=== PATIENT | female | born 1995 ===

== ENCOUNTER 2018-08-18 20:43 | Emergency (ER) | payer SELFPAY ==
[2018-08-18 21:54] VITALS: BMI 26.2
[2018-08-19 00:20] LABS: BASO % 0.3 % (0.0-2.0); EOS % 0.1 % (0.0-4.0); HEMOGLOBIN 13.1 g/dL (11.0-16.0); LYMPH # 1.2 K/uL (1.0-4.3); LYMPH % 16.1 % (20.0-40.0); MEAN CELL VOLUME 93.4 fL (81.0-99.0); MEAN CORPUSCULAR HEMOGLOBIN 32.2 pg (27.0-31.0); MEAN CORPUSCULAR HGB CONC 34.5 g/dL (33.0-37.0); MONO # 0.3 K/uL (0.0-0.8); MONO % 4.4 % (0.0-10.0); NEUT # 5.9 K/uL (1.8-7.0); NEUT % 79.1 % (50.0-75.0); RBC 4.06 Mil/uL (3.80-5.20); RED CELL DISTRIBUTION WIDTH 13.1 % (11.5-14.5); WHITE BLOOD COUNT 7.5 K/uL (4.8-10.8)
[2018-08-19 00:28] LABS: ALB/GLOB RATIO 1.5 (1.0-2.1); ALBUMIN 5.1 g/dL (3.5-5.0); ALT/SGPT 25 U/L (9-52); AST/SGOT 27 U/L (14-36); BLOOD UREA NITROGEN 9 mg/dL (7-17); CALCIUM 9.9 mg/dl (8.6-10.4); GFR NON-AFRICAN AMERICAN > 60
[2018-08-19] MEDS ORDERED: Iodixanol 320 MG/ML 100 ML BOTTLE IV ONE (00:38)
[2018-08-19 02:09] VITALS: BP 110/62; PULSE 81; RESP 16; TEMP 98.1
[2018-08-19 02:13] VITALS: O2SAT 100
--- NOTE | 2018-08-19 02:13 | C.PDOC ---
History Of Present Illness 22 year old female presents with left sided chest pain since 12 noon while at home. Patient reports feeling anxious, states it worsens with inspiration and radiates to the left upper arm, shoulder and back area. Denies SOB or recent prolonged travel. She reports she has implanted control device in her left upper arm. Time Seen by Provider: 08/18/18 20:45 Chief Complaint (Nursing): Chest Pain History Per: Patient History/Exam Limitations: no limitations Onset/Duration Of Symptoms: Hrs Current Symptoms Are (Timing): Still Present Exacerbating Factors: Deep Breathing Alleviating Factors: None Recent travel outside of the [place]: No Past Medical History Reviewed: Historical Data, Nursing Documentation, Vital Signs Vital Signs: Last Vital Signs Temp 98.6 F 08/18/18 21:11 Pulse 80 08/18/18 23:54 Resp 18 08/18/18 23:54 BP 129/74 08/18/18 23:54 Pulse Ox 100 08/18/18 23:54 Primary Care Provider: FAMILY PROVIDER,NO Family History: States: No Known Family Hx - Social History Hx Alcohol Use: No Hx Substance Use: No Review Of Systems Constitutional: Negative for: Fever, Chills Cardiovascular: Positive for: Chest Pain Respiratory: Negative for: Cough, Shortness of Breath Gastrointestinal: Negative for: Nausea, Vomiting Skin: Negative for: Rash Physical Exam - Physical Exam Appears: Non-toxic Skin: Warm, No Rash Head: Atraumatic, Normacephalic Eye(s): bilateral: Normal Inspection Oral Mucosa: Moist Neck: Normal, Supple Chest: Symmetrical, No Tenderness Cardiovascular: Rhythm Regular Respiratory: Normal Breath Sounds, No Rales, No Rhonchi, No Wheezing Gastrointestinal/Abdominal: Soft, No Tenderness Extremity: Normal ROM (x4), No Calf Tenderness, Other (Small scar with possible palpable mass to inner aspect of left upper arm.) Pulses: Left Radial: Normal, Right Radial: Normal Neurological/Psych: Oriented x3, Normal Speech ED Course And Treatment - Laboratory Results Result Diagrams: 08/19/18 00:10 08/19/18 00:10 Lab Results: D-Dimer, Quantitative 291 ng/mlDDU (0-243) H 08/18/18 22:14 Troponin I < 0.0120 ng/mL (0.00-0.120) 08/19/18 00:10 Total Bilirubin 0.7 mg/dL (0.2-1.3) 08/19/18 00:10 AST 27 U/L (14-36) 08/19/18 00:10 ALT 25 U/L (9-52) 08/19/18 00:10 Alkaline Phosphatase 66 U/L (38-126) 08/19/18 00:10 Total Protein 8.5 g/dL (6.3-8.3) H 08/19/18 00:10 Albumin 5.1 g/dL (3.5-5.0) H 08/19/18 00:10 Globulin 3.4 gm/dL (2.2-3.9) 08/19/18 00:10 Albumin/Globulin Ratio 1.5 (1.0-2.1) 08/19/18 00:10 ECG: Interpreted By Me, Viewed By Me ECG Rhythm: Sinus Rhythm ECG Interpretation: Normal Interpretation Of ECG: Right axis deviation, nonspecific ST/T abnormalities Rate From EC O2 Sat by Pulse Oximetry: 100 (Room air) Pulse Ox Interpretation: Normal - CT Scan/US CTA Other Rad Studies (CT/US): Read By Radiologist, Radiology Report Reviewed CT/US Interpretation: CTA OF THE CHEST WITH IV CONTRAST. CLINICAL HISTORY: Chest pain and elevated d-dimer. TECHNIQUE: Axial and reformatted sagittal and coronal images of the chest obtained after bolus IV contrast administration. FINDINGS: Normal enhancement of the main pulmonary artery and right and left pulmonary arteries. Normal enhancement of the bilateral peripheral pulmonary arteries. There is no demonstrated pulmonary embolism. Normal thoracic aorta and visualized great vessels. There is no demonstrated aortic dissection. Normal heart and pericardium. Normal mediastinum. Normal hilar regions. Normal visualized trachea and bronchi. The lungs are well expanded. Normal pulmonary parenchyma. Normal pleura. Normal chest wall structures. Normal osseous structures. Normal visualized upper abdomen. IMPRESSION: No demonstrated pulmonary embolism or arterial dissection. Progress Note: CXR ordered, results were negative. Motrin, prednisone, and benadryl administered. D-dimer ordered and came back positive, CTA and blood work ordered. On reevaluation, patient is resting comfortably in no acute distress, vitals are stable, CT was negative for PE, blood work was negative, will discharge home with Rx and instructions to follow up with PMD. Disposition Counseled Patient/Family Regarding: Diagnosis, Need For Followup, Rx Given - Disposition Referrals: [facility] [Outside] Disposition: HOME/ ROUTINE Disposition Time: 02:15 Condition: STABLE Additional Instructions: Take motrin for pain Take Zyrtec and prednisone Follow up in medical clinic and [facility] Return to ER if worse Prescriptions: Cetirizine HCl [Zyrtec] 10 mg PO DAILY #14 capsule Ibuprofen [Motrin] 600 mg PO Q6H #20 tab predniSONE [Prednisone] 40 mg PO DAILY #8 tab Instructions: Hives (DC), Costochondritis (DC) Forms: [facility] (Albanian) Print Language: HEBREW - Clinical Impression Clinical Impression: Chest wall pain, Urticaria - 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 - Scribe Statement The provider has reviewed the documentation as recorded by the Scribjudson Soto All medical record entries made by the Alibjudson were at my direction and personally dictated by me. I have reviewed the chart and agree that the record accurately reflects my personal performance of the history, physical exam, medical decision making, and the department course for this patient. I have also personally directed, reviewed, and agree with the discharge instructions and disposition.
--- NOTE | 2018-08-19 08:39 | RAD ---
Date of service: 08/18/2018 HISTORY: Chest pain COMPARISON: No prior. TECHNIQUE: Chest PA and lateral FINDINGS: LINES AND TUBES: None. LUNG AND PLEURA: The lungs are well inflated and clear. No pleural effusion or pneumothorax. HEART AND MEDIASTINUM: The heart is not enlarged. No aortic atherosclerotic calcifications present. The hilar and mediastinal contours are within normal limits. SKELETAL STRUCTURES: The bony structures are within normal limits for the patient's age. VISUALIZED UPPER ABDOMEN: Normal. OTHER FINDINGS: None. IMPRESSION: No active pulmonary disease.
--- NOTE | 2018-08-19 09:06 | CT ---
Date of service: 08/19/2018 PROCEDURE: CT Chest with contrast (Pulmonary Angiogram) HISTORY: chest pain, elevated dimer COMPARISON: Not available TECHNIQUE: Axial computed tomography images were obtained of the chest in the pulmonary arterial phase of enhancement. Coronal and sagittal reformatted images were created and reviewed. Intravenous contrast dose: 100 mL Visipaque 320 Radiation dose: Total exam DLP = 250.74 mGy-cm. This CT exam was performed using one or more of the following dose reduction techniques: Automated exposure control, adjustment of the mA and/or kV according to patient size, and/or use of iterative reconstruction technique. FINDINGS: PULMONARY ARTERIES: Unremarkable. No pulmonary embolism. AORTA: No acute findings. No thoracic aortic aneurysm. No aortic atherosclerotic calcification or mural plaque present. LUNGS: Unremarkable. No nodule, mass or pulmonary consolidation. PLEURAL SPACES: Unremarkable. No effusion or pneumothorax. HEART: Unremarkable. No cardiomegaly. No significant pericardial effusion. LYMPH NODES: No lymphadenopathy. BONES, CHEST WALL: Unremarkable. No fracture or destructive lesion OTHER FINDINGS: Unremarkable. IMPRESSION: Unremarkable CT pulmonary angiogram. No pulmonary embolus. The preliminary findings for this examination were reported by [facility] at 1:58 a.m. on 08/19/2018. There is concurrence of this report with the preliminary findings.
== END 2018-08-19 02:37 | disposition home or self-care (01) ==
LOC: C.ER 20:43
DX: R07.89 Other chest pain (principal); L50.9 Urticaria, unspecified
CPT/HCPCS: 71046; 71275; 80053; 81025; 82948; 84484; 85025; 85378; 99285; Q9967